=== PATIENT | male | born 1995 | race Caucasian/White ===

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

== ENCOUNTER 2018-02-18 13:44 | Emergency (ER) | payer OTHER ==
[~2018-02-18] VITALS: Ht 162.6 cm; Wt 59.0 kg
[2018-02-18 13:58] VITALS: BP 145/83
[2018-02-18] MEDS ORDERED: AUGMENTIN 875-1 EACH PO (14:02)
[2018-02-18] MEDS ORDERED: CIPRODEX OTIC7.5 ML OT (14:02)
[2018-02-18] MEDS ORDERED: IBUPROFEN800 M1 PO ×2 (14:03)
--- NOTE | 2018-02-18 14:04 | ED EAR COMPLAINT ---
History of Present Illness General Chief Complaint: Ear Complaints Stated Complaint: RT EAR PAIN/SWELLING Source: patient Exam Limitations: no limitations Vital Signs & Intake/Output Vital Signs & Intake/Output ED Intake and Output 02/19 0000 02/18 1200 Intake Total Output Total Balance Patient 130 lb Weight Weight Reported by Patient Measurement Method Allergies Coded Allergies: NO KNOWN ALLERGIES (04/26/16) Reconcile Medications Amoxicillin/Potassium Clav (Augmentin 875-125 Tablet) 875 MG-125 MG TABLET 1 TAB PO BID OTITIS EXTERNA/MEDIA Ciprofloxacin HCl/Dexameth (Ciprodex Otic Suspension) 0.3 %-0.1 % DROPS.SUSP 4 GTT OT BID OTITIS EXTERNA Fluocinonide 0.05 % OINT...G. 1 MARLY TOP BID CONTACT DERMATITIS apply to affected area(s) Ibuprofen 800 MG TABLET 1 TAB PO TID PRN PAIN/FEVER INSULIN ASPART PROTAM & ASPART (Novolog Mix 70-30 Flexpen Syrn) 3 ML VINCENT 30 UNITS SC QAM DIABETES (Reported) INSULIN NPL/INSULIN LISPRO (Humalog Mix 50-50 Kwikpen) 3 ML VINCENT 24 UNITS SC QPM DIABETES (Reported) Triage Nurses Notes Reviewed? yes Onset: Abrupt Duration: day(s): (2), constant, continues in ED, getting worse Timing: single episode today Injury Environment: home Severity: moderate, severe Severity Numbers: 9 No Modifying Factors: none HPI: 22-year-old male history of type 1 diabetes since her evaluation of right ear pain. Patient reports symptoms started about 2 days ago with persistent. He reports pain and swelling to the ear canal. He also has had some discharge. He denies any recent swimming or trauma. No fevers. No tinnitus. Past History Travel History Traveled to [place] past 21 day No Medical History Any Pertinent Medical History? 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 No Review of Systems Review of Systems Constitutional: Reports: no symptoms. EENTM: Reports: ear discharge, ear pain. Respiratory: Reports: no symptoms. Cardiovascular: Reports: no symptoms. GI: Reports: no symptoms. Genitourinary: Reports: no symptoms. Musculoskeletal: Reports: no symptoms. Skin: Reports: no symptoms. Neurological/Psychological: Reports: no symptoms. Hematologic/Endocrine: Reports: no symptoms. Immunologic/Allergic: Reports: no symptoms. All Other Systems: Reviewed and Negative Physical Exam Physical Exam General Appearance: well developed/nourished, no apparent distress, alert, awake Head: atraumatic, normal appearance Eyes: Bilateral: normal appearance, PERRL, EOMI. Ears: Left: canal normal, Tympanic normal. Right: swelling, tenderness, other (SEE COMMENTS BELOW). Nose: normal inspection Mouth/Throat: normal mouth inspection, pharynx normal Neck: normal inspection, supple, full range of motion Cardiovascular/Respiratory: normal breath sounds, normal peripheral pulses, regular rate/rhythm, no respiratory distress Back: normal inspection, normal range of motion Neurologic/Psych: no motor/sensory deficits, awake, alert, oriented x 3, normal gait, normal mood/affect Skin: intact, normal color, warm/dry Comments: The right external auditory canal is erythematous and edematous. The tympanic membrane is unable to be visualized. There is purulent discharge in the canal. No PERIURICULAR lymphadenopathy no mastoid tenderness Progress Differential Diagnoses I considered the following diagnoses in my evaluation of the patient: [Otitis externa otitis media, cerumen impaction] Plan of Care: Current Medications Sig/Whitney Start time Last Medication Dose Stop Time Status Admin Acetaminophen 975 MG ONCE ONE 02/18 1400 UNVr (Tylenol) 02/18 1401 Patient is here with otitis externa. The tympanic membrane is unable to be visualized due to swelling. Patient has a low-grade temperature. His fingerstick is in the 180s. Patient is medicated with Tylenol emergency department. He was given a prescription for Ciprodex and Augmentin. Advised Tylenol at appropriate for pain and follow up with the primary care doctor in a few days discussed cautions patient agrees the plan Initial ED EKG: none Departure Departure Disposition: HOME OR SELF CARE Condition: Stable Clinical Impression Primary Impression: Otitis externa Qualifiers: Otitis externa type: other infective Chronicity: acute Laterality: right Qualified Code: H60.391 - Other infective otitis externa, right ear Referrals: Patient Has No Primary Care Dr (PCP/Family) Additional Instructions: Apply antibiotic drops and take oral antibiotics as directed for the full course. Later on your opposite side when applying the drops to ensure that he stay in. Alternate between ibuprofen 800 mg every 8 hours with food as needed for pain and Tylenol 1000 mg every 6 hours. Keep your ears dry do not go swimming. Make a follow-up with her primary care doctor for recheck in a few days. Return sooner with any concerns. Departure Forms: Customer Survey General Discharge Information Prescriptions: Current Visit Scripts Amoxicillin/Potassium Clav (Augmentin 875-125 Tablet) 1 TAB PO BID #20 TAB Ciprofloxacin HCl/Dexameth (Ciprodex Otic Suspension) 4 GTT OT BID #1 BOT Ibuprofen 1 TAB PO TID PRN PAIN/FEVER #30 TAB
== END 2018-02-18 14:07 ==
LOC: ERH 13:44
DX: H66.91 Otitis media, unspecified, right ear (principal); E11.9 Type 2 diabetes mellitus without complications; Z79.84 Long term (current) use of oral hypoglycemic drugs